=== PATIENT | female | born 1990 | race Caucasian/White ===

== ENCOUNTER 2020-02-09 13:55 | Emergency (ER) | payer MEDICAID ==
[~2020-02-09] VITALS: Ht 157.5 cm; Wt 91.2 kg
[2020-02-09 14:00] VITALS: BP 150/61
--- NOTE | 2020-02-09 14:00 | NUR ---
PT TO ER BED 4
--- NOTE | 2020-02-09 14:20 | NUR ---
29 Y/O FEMALE C/O TONSIL PAIN STARTING 5 DAYS AGO + MILD EAR PAIN. PT DENIES ANY SOB/COUGH, REPORTS THAT SHE HAD A SUBJECTIVE FEVER YESTERDAY AND HAS BEEN TAKING TYLENOL, TOOK 2 TYLENOL BEFORE ARRIVING TO ER AND IS UNABLE TO GIVE EXACT DOSE. PT STATES IT IS PAINFUL TO SWALLOW AND OPEN MOUTH. LEFT TONSIL IS INFLAMED WITH WHITE PATCHES. AIRWAY IS PATENT. LUNG SOUNDS CLEAR IN BILAT LOBES. NO PMH NKA
[2020-02-09] MEDS ORDERED: NACL 0.9% 1,000 ML IV ONE (14:40)
[2020-02-09] MEDS ORDERED: DEXAMETHASONE 4 MG/ML VIAL PO ONE (14:40)
[2020-02-09] MEDS ORDERED: AMOXIL/CLAVULANATE 875/125 MG 1 TAB PO ONE (14:40)
[2020-02-09] MEDS ORDERED: LIDOCAINE VISCOUS 2% 20 ML UDC PO ONE (14:40)
[2020-02-09 15:48] VITALS: BP 110/72
--- NOTE | 2020-02-09 15:49 | NUR ---
Patient discharged with v/s stable. Written and verbal after care instructions given and explained. Patient alert, oriented and verbalized understanding of instructions. Ambulatory with steady gait. All questions addressed prior to discharge. ID band removed. Patient advised to follow up with PMD. Rx of CEPACOL LOZENGES, MOTRIN, AUGMENTIN given. Patient educated on indication of medication including possible reaction and side effects. Opportunity to ask questions provided and answered.
== END 2020-02-09 15:49 | disposition home or self-care (01) ==
LOC: MED 13:55
DX: J03.90 Acute tonsillitis, unspecified (principal)
CPT/HCPCS: 99284; J1100; J7030